=== PATIENT | male | born 1990 | race African-American/Black ===

== ENCOUNTER 2021-08-05 18:05 | Emergency (ER) | payer BC ==
--- OUTSIDE RECORDS SUMMARY | 2021-08-05 18:07 | XMS REPORT | Continuity of Care Document ---
:1990 Author Organization [facility] t Address [address] [place] [address] Care Team Providers Name Role Phone Nic VACA, H Primary Care Physician BELINDA Attending Clinician Unavailable LAB90 Attending Clinician Unavailable Belinda ACCOUNTANT-C Attending Clinician Rohan Chris MD Attending Clinician PARK SPENCE Attending Clinician Unavailable DEVIN SALDIVAR Attending Clinician Unavailable NIKOS Attending Clinician Unavailable Payers Payer Name Policy Type Policy Number Effective Date Expiration Date S [facility] 2 [id number] 2019 00:00:00 Problems Condition Condition Condition Status Onset Resolution Last Treating Co mments Source Name Details Category Date Date Treatment Clinician Date Adult Adult Problem Active [facility] general general HL7.CCDAR2 [facility] of [facility] [place] exam exam Physici ans Need for Need for Problem Active Unive rs HPV HPV HL7.CCDAR2 ity of vacc[place] vacc[place] Physici ans Depression Depression Problem Active U nivers HL7.CCDAR2 ity of [place] Physici ans Anemia, Anemia, Problem Active Univers macrocytic macrocytic HL7.CCDAR2 ity of [place] Physici ans Hematuria Hematuria Problem Active Uni vers HL7.CCDAR2 ity of [place] Physici ans Folliculit Folliculit Problem Active U nivers is is HL7.CCDAR2 ity of [place] Physici ans Calcium Calcium Problem Active Univers oxalate oxalate HL7.CCDAR2 ity of crystals crystals [place] in urine in urine Physic i ans No known No known Disease Kelse y active active Seybold problems problems Allergies, Adverse Reactions, Alerts This patient has no known allergies or adverse reactions. Family History Family Member Diagnosis Comments Start Date Stop Date Source Mother Family history of [facility] ity of [place] multiple sclerosis Physic ians Father Family history of [facility] of [place] hypertension Physicians Social History Social Habit Start Date Stop Date Quantity Comments Source History SDOH Anca vicente Alcohol Comment History of tobacco Cigar Smoker Andria william ybold use Alcohol intake 2021-06-03 2021-06-03 Current drinker Marty Lora 00:00:00 00:00:00 of alcohol (finding) History [facility] 2019-10-30 2019-10-30 2 Anca vicente Alcohol Binge 00:00:00 00:00:00 Tobacco Comment 2019-10-30 2019-10-30 weekends Anca Se ybbette 00:00:00 00:00:00 Tobacco use and 2019-10-30 2019-10-30 Smokeless tobacco Ke ramsey Pastranaybold exposure 00:00:00 00:00:00 non-user History [facility] 2019-10-30 2019-10-30 3 Anca Mayfieldo cinthia Alcohol Frequency 00:00:00 00:00:00 History [facility] 2019-10-30 2019-10-30 2 Anca vicente Alcohol Std Drinks 00:00:00 00:00:00 [birth year] At [birth year] Anca Pastrana ybbette 00:00:00 00:00:00 Smoking Status Start Date Stop Date Source Smoker. [facility] [place] unknown Physicians Light tobacco smoker 2019-10-30 00:00:00 Anca Lora Medications Ordered Filled Start Stop Current Ordering Indication Dosage Frequency Signature Comments Components Source Medication Medication Date Date Medication? Clinician (SIG) Name Name Diclofenac Yes [id number] 75mg Take 1 Anca Sodium 75 09-11 9100 tablet (75 Seyb old MG oral 00:00: mg total) Tablet 00 by mouth 2 Delayed times Response daily For 1 week then take daily as needed Diclofenac 2020- Yes [id number] 75mg Take 1 Anca Sodium 75 09-11 9100 tablet (75 Seyb old MG oral 00:00: mg total) Tablet 00 by mouth 2 Delayed times Response daily For 1 week then take daily as needed methylPREDN Yes Anca ISolone 4 5-31 Seybold MG oral 00:00: Tablet 00 Therapy Pack methylPREDN Marty corley ISolone 4 5-31 - Seybold MG oral 00:00: 00:00 Tablet 00 :00 Therapy Pack Immunizations Ordered Filled Immunization Date Status Comments [facility] Immunization Name Name HPV (Gardasil) 2016-03-12 Completed [facility] 10:10:00 Cher Physicia waqas Vital Signs Vital Name Observation Time Observation Value Comments Source Systolic blood pressure 2021-06-03 17:05:00 124 mm[Hg] Anca Seybold Diastolic blood 2021-06-03 17:05:00 60 mm[Hg] Kelse y Seybold pressure Heart rate 2021-06-03 17:05:00 89 /min Anca S williambold Body temperature 2021-06-03 17:05:00 36.67 Becky Andria ey Seybold Respiratory rate 2021-06-03 17:05:00 16 /min Andria thomas Seybold Body height 2021-06-03 17:05:00 177.8 cm Anca thomasbold Body weight 2021-06-03 17:05:00 87.998 kg Anca S williambold BMI 2021-06-03 17:05:00 27.84 kg/m2 Anca S williambold Systolic blood pressure 2021-01-03 16:27:00 126 mm[Hg] Anca Seybold Diastolic blood 2021-01-03 16:27:00 68 mm[Hg] Kelse y Seybold pressure Heart rate 2021-01-03 16:27:00 74 /min Anca S eybold Body temperature 2021-01-03 16:27:00 36.56 Becky Andria ey Seybold Respiratory rate 2021-01-03 16:27:00 20 /min Andria ey Seybold Body height 2021-01-03 16:27:00 177.8 cm Anca gallego Body weight 2021-01-03 16:27:00 85.004 kg Anca gallego BMI 2021-01-03 16:27:00 26.89 kg/m2 Anca gallego Procedures This patient has no known procedures. Encounters Start End Encounter Admission Attending Care Care Encounter Source Date/Time Date/Time Type Type Clinicians Facility Department ID 2021-06-12 2021-06-12 Outpatient ANCA TREVINO [id number] Anca 00:00:00 00:00:00 NANCY Seybol d 2021-06-10 2021-06-10 Outpatient ANCA TREVINO [id number] Anca 00:00:00 00:00:00 NANCY Seybol d 2021-06-09 2021-06-09 Outpatient ANCA TREVINO [id number] Anca 00:00:00 00:00:00 NANCY Seybol d 2021-06-03 2021-06-03 Outpatient LAB90 ANCA ESQUIVEL [id number] Anca 11:45:00 11:45:00 Seybol d 2021-06-03 2021-06-03 Office Jori Trevino [id number] Anca 11:00:00 11:30:00 Visit Nancy Rose [id number] Se gisell [id number] 2021-01-03 2021-01-03 Outpatient LAB90 ANCA ESQUIVEL [id number] Anca 12:15:00 12:15:00 Seybol d 2021-01-03 2021-01-03 Office Jori Chris [id number] Anca 11:23:34 11:53:34 Visit Madelaine Milton [id number] Se ybold Somogyi [id number] 2020-09-23 2020-09-24 Emergency E SAMUEL SPENCE MHBL [id number] MHBL 21:40:00 04:39:00 REEVA 2020-09-09 2020-09-09 Emergency E SAMUEL SALDIVAR MHBL [id number] MHBL 10:16:00 12:48:00 SANDY 2016-03-19 2016-03-19 KATARINA Shah [facility] [id number] Univers 09:00:00 09:00:00 t; ramona AREVALO M.D. [place] JEFFEEA, Physici M.D. ans 2016-03-12 2016-03-12 KATARINA Shah [facility] [id number] Univers 09:45:00 09:45:00 t; ramona AREVALO M.D. [place] JEFFEEA, Physici M.D. ans Results This patient has no known results.
[2021-08-05 19:02] LABS: Absolute Lymphocytes (CBC) 2.1 K/uL (0.7-4.9); Hematocrit 41.8 % (39.6-49.0); Lymphocytes % 34.2 % (15.3-44.8); MPV 8.1 fL (7.6-11.3); RBC Red Blood Cell Count 4.42 M/uL (4.33-5.43)
[2021-08-05 19:34] LABS: ALT/SGPT 39 U/L (12-78); AST/SGOT 24 U/L (15-37); Albumin 4.3 g/dL (3.4-5.0); Alkaline Phosphatase 51 U/L (45-117); BUN Blood Urea Nitrogen 13 mg/dL (7-18); Bicarbonate 28 mmol/L (21-32); Bilirubin Total 0.3 mg/dL (0.2-1.0); Glucose Level 98 mg/dL (74-106); Lipase 84 U/L (73-393); Potassium 3.9 mmol/L (3.5-5.1); Protein, Total 7.5 g/dL (6.4-8.2); Sodium Level 138 mmol/L (136-145)
[2021-08-05] MEDS ORDERED: AZITHROMYCIN 250 MG TAB ONE (19:54)
[2021-08-05] MEDS ORDERED: LIDOCAINE 1% MPF 2 ML AMPULE ONE (19:54)
[2021-08-05] MEDS ORDERED: CEFTRIAXONE 250 MG/VIAL ONE (19:54)
[2021-08-05 20:03] LABS: Urine Blood Trace-intact (Negative); Urine Glucose Negative (Negative); Urine Protein Negative (Negative); Urine Specific Gravity 1.025 (1.005-1.030)
--- NOTE | 2021-08-05 20:04 | ER ---
Nurse's Notes [facility] Name: Jess Mark Age: 30 yrs Sex: Male : 1990 Arrival Date: 08/05/2021 Time: 18:10 Bed 5 Private MD: Diagnosis: Nonspecific lymphadenitis, unspecified-bilateral inguinal lymphadenititis Presentation: 08/05 18:27 Chief complaint: Patient states: Right side ABD pain x2 days and diarrhea; denies NV. vg1 Coronavirus screen: Vaccine status: Patient reports being unvaccinated. Client denies travel out of the [place] in the last 14 days. Ebola Screen: Patient denies exposure to infectious person. Patient denies travel to an Ebola-affected area in the 21 days before illness onset. Initial Sepsis Screen: Does the patient meet any 2 criteria? No. Patient's initial sepsis screen is negative. Does the patient have a suspected source of infection? No. Patient's initial sepsis screen is negative. Risk Assessment: Do you want to hurt yourself or someone else? Patient reports no desire to harm self or others. Onset of symptoms was August 03, 2021. 18:27 Method Of Arrival: Amb[facility] 18:27 Acuity: [place] 3 vg1 Triage Assessment: 18:29 General: Appears comfortable, Behavior is cooperative. Pain: Complains of pain in right vg1 lower quadrant Pain currently is 0 out of 10 on a pain scale. at worst was 5 out of 10 on a pain scale. GI: Abdomen is flat, Reports diarrhea. Historical: - Allergies: 18:29 No Known Allergies; vg1 - Home Meds: 18:29 None [Active]; vg1 - PMHx: 18:29 None; vg1 - PSHx: 18:29 None; vg1 - Immunization history:: Client reports having NOT received the Covid vaccine. - Social history:: Smoking status: Patient/guardian denies using tobacco. Screenin:00 Abuse screen: Denies injuries from another. Nutritional screening: No deficits noted. jb4 Tuberculosis screening: No symptoms or risk factors identified. Fall Risk None identified. Assessment: 19:47 General: Appears in no apparent distress. Behavior is calm, cooperative, pt ambulating as6 to bathroom . 20:08 Reassessment: Patient appears in no apparent distress at this time. Patient and/or jb4 family updated on plan of care and expected duration. Pain level reassessed. Patient is alert, oriented x 3, equal unlabored respirations, skin warm/dry/pink. Vital Signs: 18:27 BP 154 / 89; Pulse 70; Resp 16; Temp 98.1; Pulse Ox 100% ; Weight 86.18 kg; Height 5 vg1 ft. 11 in. (180.34 cm); Pain 0/10; 20:08 BP 153 / 81; Pulse 65; Resp 18 S; Pulse Ox 98% on R/A; as6 18:27 Body Mass Index 26.50 (86.18 kg, 180.34 cm) vg1 ED Course: 18:10 Patient arrived in ED. ds1 18:29 Triage completed. vg1 18:29 Arm band placed on. vg1 18:33 Donnie Hernandez NP is PHCP. pm1 18:33 Heri Milton MD is Attending Physician. pm1 18:43 Jarret Marcelino, USMAN is Primary Nurse. jb4 19:00 Patient has correct armband on for positive identification. Bed in low position. Call jb4 light in reach. Side rails up X 1. Pulse ox on. NIBP on. 19:00 Initial lab(s) drawn, by ga, sent to lab. Inserted saline lock: 18 gauge in right jb4 antecubital area, using aseptic technique. Blood collected. 20:03 No provider procedures requiring assistance completed. as6 20:08 IV discontinued, intact, bleeding controlled, No redness/swelling at site. Pressure jb4 dressing applied. Administered Medications: 19:57 Drug: Rocephin (cefTRIAXone) 250 mg Route: IM; Site: right ventrogluteal; as6 19:57 Drug: AZITHromycin 1 grams Route: PO; as6 Outcome: 20:02 Discharge ordered by . pm1 20:03 Discharged to home ambulatory. as6 20:03 Condition: stable 20:08 Discharge instructions given to patient, Instructed on discharge instructions, follow jb4 up and referral plans. medication usage, Demonstrated understanding of instructions, follow-up care, medications, Prescriptions given X 1. 20:09 Patient left the ED. jb4 Signatures: Norma Stanton ds1 Donnie Hernandez NP FIBER ANALYST pm1 Jarret Marcelino RN RN jb4 Eula Dominguez RN RN vg1 Slawson, Jeff, RN RN as6
--- NOTE | 2021-08-05 20:04 | EDPHYS ---
Physician Documentation [facility] Name: Jess Mark Age: 30 yrs Sex: Male : 1990 Arrival Date: 08/05/2021 Time: 18:10 Bed 5 Private MD: ED Physician Heri Milton HPI: 08/05 19:53 This 30 yrs old Black Male presents to ER via Ambulatory with complaints of inguinal pm1 pain. 19:53 The patient presents with inguinal lymph node swelling noted for the past 2 days. Right pm1 side more painful than the left side. Patient reports history of abrasions present to lower extremities the past few days. Onset: The symptoms/episode began/occurred 2 day(s) ago. Modifying factors: The symptoms are alleviated by nothing, the symptoms are aggravated by nothing. Patient is able to work without noticing the swollen lymph nodes without pain. Associated signs and symptoms: Pertinent positives: diarrhea, Pertinent negatives: abdominal pain, dysuria, fever, nausea, vomiting. Severity of symptoms: in the emergency department the symptoms have improved, left side no longer causing pain. The patient has experienced a previous episode, many years ago. The patient has not recently seen a physician. 19:53 Patient reports sex with a friend about 2 weeks ago. Not monogynous relationship. pm1 Denies testicular pain, discharge, or burning with urination. . Historical: - Allergies: 18:29 No Known Allergies; vg1 - Home Meds: 18:29 None [Active]; vg1 - PMHx: 18:29 None; vg1 - PSHx: 18:29 None; vg1 - Immunization history:: Client reports having NOT received the Covid vaccine. - Social history:: Smoking status: Patient/guardian denies using tobacco. ROS: 19:53 Constitutional: Negative for fever, chills, and weight loss, Cardiovascular: Negative pm1 for chest pain, palpitations, and edema, Respiratory: Negative for shortness of breath, cough, wheezing, and pleuritic chest pain, Abdomen/GI: Negative for abdominal pain, nausea, vomiting, diarrhea, and constipation, Back: Negative for injury and pain, : Negative for injury, bleeding, discharge, and swelling, MS/Extremity: Negative for injury and deformity, Skin: Negative for injury, rash, and discoloration, Neuro: Negative for headache, weakness, numbness, tingling, and seizure. 19:53 All other systems are negative. Exam: 19:53 Constitutional: This is a well developed, well nourished patient who is awake, alert, pm1 and in no acute distress. Head/Face: Normocephalic, atraumatic. 19:53 Back: No spinal tenderness. No costovertebral tenderness. Full range of motion. Skin: Warm, dry with normal turgor. Normal color with no rashes, no lesions, and no evidence of cellulitis. 19:53 MS/ Extremity: Pulses equal, no cyanosis. Neurovascular intact. Full, normal range of motion. 19:53 Cardiovascular: Exam negative for acute changes, Rate: normal, Rhythm: regular, Pulses: no pulse deficits are appreciated. 19:53 Respiratory: Exam negative for acute changes, respiratory distress, shortness of breath. 19:53 Abdomen/GI: Inspection: abdomen appears normal, Palpation: abdomen is soft and non-tender, in all quadrants. 19:53 : soft movable lymph nodes present to right and left inguinal area. 19:53 Neuro: Exam negative for acute changes, Orientation: is normal, Mentation: is normal, Motor: is normal, moves all fours. Vital Signs: 18:27 BP 154 / 89; Pulse 70; Resp 16; Temp 98.1; Pulse Ox 100% ; Weight 86.18 kg; Height 5 vg1 ft. 11 in. (180.34 cm); Pain 0/10; 20:08 BP 153 / 81; Pulse 65; Resp 18 S; Pulse Ox 98% on R/A; as6 18:27 Body Mass Index 26.50 (86.18 kg, 180.34 cm) vg1 MDM: 18:33 Patient medically screened. pm1 19:59 Data reviewed: vital signs. Data interpreted: Pulse oximetry: on room air is 100 %. pm1 Interpretation: normal. Counseling: I had a detailed discussion with the patient and/or guardian regarding: the historical points, exam findings, and any diagnostic results supporting the discharge/admit diagnosis, lab results, the need for outpatient follow up, PCP and/or STD clinic, to return to the emergency department if symptoms worsen or persist or if there are any questions or concerns that arise at home. 08/05 18:39 Order name: CBC with Diff; Complete Time: 19:28 pm1 08/05 18:39 Order name: CMP; Complete Time: 19:38 pm1 08/05 18:39 Order name: Lipase; Complete Time: 19:38 pm1 08/05 20:04 Order name: Urine Dipstick-Ancillary; Complete Time: 20:20 EDDE 08/05 18:39 Order name: IV Saline Lock; Complete Time: 19:00 pm1 08/05 18:39 Order name: Labs collected and sent; Complete Time: 19:00 pm1 08/05 18:39 Order name: Urine Dipstick-Ancillary (obtain specimen); Complete Time: 20:03 pm1 Administered Medications: 19:57 Drug: Rocephin (cefTRIAXone) 250 mg Route: IM; Site: right ventrogluteal; as6 19:57 Drug: AZITHromycin 1 grams Route: PO; as6 Disposition Summary: 08/05/21 20:02 Discharge Ordered Location: Home pm1 Problem: new pm1 Symptoms: have improved pm1 Condition: Stable pm1 Diagnosis - Nonspecific lymphadenitis, unspecified - bilateral inguinal lymphadenititis pm1 Followup: pm1 - With: Emergency Department - When: As needed - Reason: Worsening of condition Followup: pm1 - With: Private Physician - When: 2 - 3 days - Reason: Recheck today's complaints, Continuance of care, Re-evaluation by your physician Discharge Instructions: - Discharge Summary Sheet pm1 - Lymphadenopathy pm1 Forms: - Medication Reconciliation Form pm1 - Thank You Letter pm1 - Antibiotic Education pm1 - Prescription Opioid Use pm1 Prescriptions: - Cephalexin 500 mg Oral Capsule - take 1 capsule by ORAL route every 6 hours for 10 days; 40 capsule; Refills: 0, pm1 Product Selection Permitted Signatures: Dispatcher [employer] [facility] Donnie Hernandez NP CELERY WRAPPER pm1 Eula Dominguez, RN RN vg1 Jeff Lim, USMAN RN as6
[2021-08-05 22:52] VITALS: TEMP 98.1
[2021-08-05 22:53] VITALS: BP 153/81; O2SAT 98
== END 2021-08-05 20:09 | disposition home or self-care (01) ==
LOC: ER 18:05
DX: I88.8 Other nonspecific lymphadenitis (principal)
CPT/HCPCS: 85025; 36415; 81003; 83690; 80053; J0696; 96372; 99284

== ENCOUNTER 2022-01-10 18:29 | Emergency (ER) | payer BC, SELFPAY ==
--- OUTSIDE RECORDS SUMMARY | 2022-01-10 18:33 | XMS REPORT | Continuity of Care Document ---
:1990 Author Organization [facility] t Address [address] [place] [address] Care Team Providers Name Role Phone Nic VACA, Marcial Primary Care Physician Ke Rubio DO Attending Clinician NANCY TREVINO Attending Clinician Unavailable LAB90 Attending Clinician Unavailable Nancy Kilgore Attending Clinician Madelaine Chris MD Attending Clinician [phone] JG SPENCE Attending Clinician Unavailable SANDY SALDIVAR Attending Clinician Unavailable MICKEY KNOTT M.D. Attending Clinician Unavailable Payers Payer Name Policy Type Policy Number Effective Date Expiration Date S ource Problems Condition Condition Condition Status Onset Resolution Last Treating Co mments Source Name Details Category Date Date Treatment Clinician Date Dermatitis Dermatitis Disease Active K elsey 5-05 Seybold 00:00: 00 History of History of Disease Active K elsey chlamydia chlamydia - Seyb old infection infection 00:00: 00 Inguinal Inguinal Disease Active Kelse y lymphadeno lymphadeno 5-05 Se ybold janiya janiya 00:00: 00 Adult Adult Problem Active [facility] general general HL7.CCDAR2 Phys ici medical medical ans exam exam Need for Need for Problem Active [facility] HPV HPV HL7.CCDAR2 Physic i vaccinatio vaccinatio an s n n Depression Depression Problem Active U T HL7.CCDAR2 Physic i ans Anemia, Anemia, Problem Active [facility] macrocytic macrocytic HL7.CCDAR2 Physici ans Hematuria Hematuria Problem Active [facility] HL7.CCDAR2 Physic i ans Folliculit Folliculit Problem Active U T is is HL7.CCDAR2 Physic i ans Calcium Calcium Problem Active [facility] oxalate oxalate HL7.CCDAR2 Phys ici crystals crystals ans in urine in urine No known No known Disease Kelse y active active Seybold problems problems Allergies, Adverse Reactions, Alerts This patient has no known allergies or adverse reactions. Family History Family Member Diagnosis Comments Start Date Stop Date Source Mother Family history of multiple [facility] Physicians sclerosis Father Family history of [facility] Phys icians hypertension Social History Social Habit Start Date Stop Date Quantity Comments Source History SDOH Anca vicente Alcohol Comment History of tobacco Cigar Smoker Andria thomas Seybold use Alcohol intake 2021-08-14 2021-08-14 Current drinker Marty Lora 00:00:00 00:00:00 of alcohol (finding) History SDWV 2019-10-30 2019-10-30 2 Anca vicente Alcohol Binge 00:00:00 00:00:00 Tobacco Comment 2019-10-30 2019-10-30 weekends Anca jameson 00:00:00 00:00:00 Tobacco use and 2019-10-30 2019-10-30 Smokeless tobacco Ke howilliam Seybold exposure 00:00:00 00:00:00 non-user History SDWV 2019-10-30 2019-10-30 3 Anca vicente Alcohol Frequency 00:00:00 00:00:00 History SDWV 2019-10-30 2019-10-30 2 Anca vicente Alcohol Std Drinks 00:00:00 00:00:00 Sex [birth year] At [birth year] Anca Se ybold 00:00:00 00:00:00 Smoking Status Start Date Stop Date Source Smoker. current status unknown [facility] Physicians Light tobacco smoker 2019-10-30 00:00:00 Anca Seybold Medications Ordered Filled Start Stop Current Ordering Indication Dosage Frequency Signature Comments Components Source Medication Medication Date Date Medication? Clinician (SIG) Name Name Fahadrocin Yes [id number] Apply 1 Anca (BACTROBAN) 08-14 applicatio Se ybold 2 % apply 00:00: n externally 00 topically Ointment 2 times daily Doxycycline 2021- No [id number] 100mg Take 1 Anca Hyclate 100 08-14-13 capsule Seyb old MG oral 00:00: 04:59 (100 mg Capsule 00 :00 total) by mouth in the morning and 1 capsule (100 mg total) in the evening. Do all this for 7 days. Cephalexin 2021- No TAKE ONE Ke lsey 500 MG oral 08-0505 CAPSULE BY S eybold Capsule 00:00: 00:00 MOUTH 00 :00 EVERY 6 HOURS FOR 10 DAYS Diclofenac Yes [id number] 75mg Take 1 Anca Sodium 75 6- 9100 tablet (75 Seyb old MG oral 00:00: mg total) Tablet 00 by mouth 2 Delayed times Response daily For 1 week then take daily as needed Diclofenac Yes [id number] 75mg Take 1 Anca Sodium 75 6-02 9100 tablet (75 Seyb old MG oral 00:00: mg total) Tablet 00 by mouth 2 Delayed times Response daily For 1 week then take daily as needed Diclofenac 2021- No [id number] 75mg Take 1 Anca Sodium 75 6-05 17- 9100 tablet (75 Sey bold MG oral 00:00: 00:00 mg total) Tablet 00 :00 by mouth 2 Delayed times Response daily For 1 week then take daily as needed methylPREDN Yes Anca ISolone 4 5-31 Seybold MG oral 00:00: Tablet 00 Therapy Pack methylPREDN 2021- No Marty y ISolone 4 5-31 02-22 Seybold MG oral 00:00: 00:00 Tablet 00 :00 Therapy Pack Immunizations Ordered Immunization Filled Immunization Date Status Commen ts Source Name Name HPV (Gardasil) 2016-03-12 Completed [facility] Physici ans 10:10:00 Vital Signs Vital Name Observation Time Observation Value Comments Source Systolic blood pressure 2021-08-14 20:51:00 110 mm[Hg] Anca Seybold Diastolic blood 2021-08-14 20:51:00 52 mm[Hg] Kelse y Seybold pressure Heart rate 2021-08-14 20:51:00 67 /min Anca S eybold Body temperature 2021-08-14 20:51:00 36.28 Becky Andria ey Seybold Respiratory rate 2021-08-14 20:51:00 14 /min Andria ey Seybold Body height 2021-08-14 20:51:00 177.8 cm Anca S eybold Body weight 2021-08-14 20:51:00 89.359 kg Anca S eybold BMI 2021-08-14 20:51:00 28.27 kg/m2 Anca S eybold Systolic blood pressure 2021-06-03 17:05:00 124 mm[Hg] Anca Seybold Diastolic blood 2021-06-03 17:05:00 60 mm[Hg] Kelse y Seybold pressure Heart rate 2021-06-03 17:05:00 89 /min Anca S eybold Body temperature 2021-06-03 17:05:00 36.67 Becky Andria ey Seybold Respiratory rate 2021-06-03 17:05:00 16 /min Andria ey Seybold Body height 2021-06-03 17:05:00 177.8 cm Anca Buck eybold Body weight 2021-06-03 17:05:00 87.998 kg Anca Buck eybold BMI 2021-06-03 17:05:00 27.84 kg/m2 Anca S eybold Systolic blood pressure 2021-01-03 16:27:00 126 mm[Hg] [...] Date/Time Type Type Clinicians Facility Department ID 2021-08-14 2021-08-14 Office Jori Rubio [id number] Anca 16:00:00 16:15:00 Visit Ke Milton [id number] Se ybold [id number] 2021-06-12 2021-06-12 Outpatient ANCA TREVINO [id number] Anca 00:00:00 00:00:00 NANCY Seybol d 2021-06-10 2021-06-10 Outpatient ANCA TREVINO [id number] Anca 00:00:00 00:00:00 NANCY Seybol d 2021-06-09 2021-06-09 Outpatient ANCA TREVINO [id number] Anca 00:00:00 00:00:00 NANCY Seybol d 2021-06-03 2021-06-03 Outpatient LAB90 ANCA ESQUIVEL [id number] Anca 11:45:00 11:45:00 Seybol d 2021-06-03 2021-06-03 Office Jori Trevino [id number] Anca 11:00:00 11:30:00 Visit Nancy Rose [id number] Se ybold [id number] 2021-01-03 2021-01-03 Outpatient LAB90 ANCA ESQUIVEL [id number] Anca 12:15:00 12:15:00 Seybol d 2021-01-03 2021-01-03 Office Jori Chris [id number] Anca 11:23:34 11:53:34 Visit Maedlaine Rose [id number] Se ybold Somogyi [id number] 2020-09-23 2020-09-24 Emergency E BEBE, BL MHBL [id number] MHBL 21:40:00 04:39:00 REEVA 2020-09-09 2020-09-09 Emergency E YARIEL, MHBL MHBL [id number] MHBL 10:16:00 12:48:00 CAMMYIWELINOR 2019-10-14 2019-10-14 Outpatient FBCOVID FBCOVID [id number] FBCOVID 00:00:00 00:00:00 [id number] 2016-03-19 Vipin [facility] UTP [id number] [place] 09:00:00 09:00:00 t; Leighton AREVALO M.D. ans JEFFEEA, M.D. 2016-03-12 2016-03-12 Vipin [facility] UTP [id number] [place] 09:45:00 09:45:00 t; Leighton AREVALO M.D. ans JEFFEEA, M.D. Results This patient has no known results.
[2022-01-10] MEDS ORDERED: AZITHROMYCIN 250 MG TAB ONE (19:13)
[2022-01-10] MEDS ORDERED: CEFTRIAXONE 250 MG/VIAL ONE (19:13)
--- NOTE | 2022-01-10 19:44 | ER ---
Nurse's Notes [facility] Name: Jess Mark Age: 31 yrs Sex: Male : 1990 Arrival Date: 01/10/2022 Time: 18:31 Bed Treatment Private MD: Diagnosis: Dysuria Presentation: 01/10 18:45 Chief complaint: Patient states: I have been having a hard time peeing lately and my bm7 girlfriend has been having the same symptoms as well. She went to the doctor today and they told her she has a STD. They gave her a shot and pills and said I needed to get checked out too. Coronavirus screen: At this time, the client does not indicate any symptoms associated with coronavirus-19. Ebola Screen: No symptoms or risks identified at this time. Initial Sepsis Screen: Does the patient meet any 2 criteria? No. Patient's initial sepsis screen is negative. Does the patient have a suspected source of infection? No. Patient's initial sepsis screen is negative. Risk Assessment: Do you want to hurt yourself or someone else? Patient reports no desire to harm self or others. Onset of symptoms was January 10, 2022. 18:45 Method Of Arrival: Ambulatory [facility] 18:45 Acuity: [place] 3 bm7 Triage Assessment: 18:46 General: Appears in no apparent distress. uncomfortable, Behavior is calm, cooperative, bm7 appropriate for age. Pain: Complains of pain in low back area and left low back. EENT: No deficits noted. No signs and/or symptoms were reported regarding the EENT system. Neuro: No deficits noted. Cardiovascular: No deficits noted. Respiratory: No deficits noted. GI: No deficits noted. No signs and/or symptoms were reported involving the gastrointestinal system. : No deficits noted. No signs and/or symptoms were reported regarding the genitourinary system. Derm: No deficits noted. No signs and/or symptoms reported regarding the dermatologic system. Musculoskeletal: Reports pain in low back area. Historical: - Allergies: 18:46 No Known Allergies; bm7 - Home Meds: 18:46 None [Active]; bm7 - PMHx: 18:46 None; bm7 - PSHx: 18:46 None; bm7 - Immunization history:: Adult Immunizations up to date, Client reports having NOT received the Covid vaccine. - Social history:: Smoking status: Patient denies any tobacco usage or history of. Screenin:52 Abuse screen: Denies threats or abuse. Denies injuries from another. Nutritional ld1 screening: No deficits noted. Tuberculosis screening: No symptoms or risk factors identified. Fall Risk None identified. Assessment: 19:52 Reassessment: See triage assessment. ld1 Vital Signs: 18:44 BP 143 / 70; Pulse 64; Resp 16; Temp 97.6(TE); Pulse Ox 100% on R/A; Weight 83.91 kg 7 (R); Height 5 ft. 11 in. (180.34 cm); Pain 5/10; 18:44 Body Mass Index 25.80 (83.91 kg, 180.34 cm) 7 ED Course: 18:31 Patient arrived in ED. as 18:42 Manjit Snyder PA is PHCP. [facility] 18:42 Norma Canales MD is Attending Physician. [facility] 18:44 Arm band placed on right wrist. [facility] 18:46 Triage completed. [facility] 19:07 Skye Brown RN is Primary Nurse. 3 19:52 Patient has correct armband on for positive identification. Call light in reach. Pulse ld1 ox on. NIBP on. Door closed. Noise minimized. 19:52 No provider procedures requiring assistance completed. Patient did not have IV access ld1 during this emergency room visit. Administered Medications: 19:23 Drug: AZITHromycin 1 grams Route: PO; 3 19:46 Follow up: Response: No adverse reaction ld1 19:30 Drug: Rocephin (cefTRIAXone) 250 mg Route: IM; Site: right vastus lateralis; ld1 19:46 Follow up: Response: No adverse reaction ld1 Medication: 19:52 VIS not applicable for this client. ld1 Outcome: 19:43 Discharge ordered by . [facility] 19:52 Discharged to home ambulatory. ld1 19:52 Condition: stable 19:52 Discharge instructions given to patient, Instructed on discharge instructions, follow up and referral plans. medication usage, Demonstrated understanding of instructions, follow-up care, medications, Prescriptions given X 1. 19:53 Patient left the ED. ld1 Signatures: Manjit Snyder PA PA jmm Martinez, Amelia as McCarthy, Brittany, RN RN bm7 Gloria Mac, RN RN ld1 Skye Brown, RN RN eh3
--- NOTE | 2022-01-10 19:44 | EDPHYS ---
Physician Documentation [facility] Name: Jess Mark Age: 31 yrs Sex: Male : 1990 Arrival Date: 01/10/2022 Time: 18:31 Bed Treatment Private MD: ED Physician Norma Canales HPI: 01/10 19:40 This 31 yrs old Black Male presents to ER via Ambulatory with complaints of Pelvic jmm Pain, Pain With Urination. 19:40 The patient presents with. This is a 31 year old male with no chronic medical jmm conditions that presents to the ED with complaints of increased urinary frequency. Partner recently tested positive for trichomonas. Denies penile discharge, fever, abdominal pain. . Historical: - Allergies: 18:46 No Known Allergies; bm7 - Home Meds: 18:46 None [Active]; bm7 - PMHx: 18:46 None; bm7 - PSHx: 18:46 None; bm7 - Immunization history:: Adult Immunizations up to date, Client reports having NOT received the Covid vaccine. - Social history:: Smoking status: Patient denies any tobacco usage or history of. ROS: 19:40 Constitutional: Negative for fever, chills, and weight loss, Cardiovascular: Negative jmm for chest pain, palpitations, and edema, Respiratory: Negative for shortness of breath, cough, wheezing, and pleuritic chest pain. 19:40 : Positive for urinary symptoms. 19:40 All other systems are negative. Exam: 19:40 Constitutional: This is a well developed, well nourished patient who is awake, alert, jmm and in no acute distress. Head/Face: atraumatic. Eyes: EOMI, no conjunctival erythema appreciated ENT: Moist Mucus Membranes Neck: Trachea midline, Supple Chest/axilla: Normal chest wall appearance and motion. Cardiovascular: Regular rate and rhythm. No edema appreciated Respiratory: Normal respirations, no respiratory distress appreciated Abdomen/GI: Non distended Back: Normal ROM Skin: General appearance color normal MS/ Extremity: Moves all extremities, no obvious deformities appreciated, no edema noted to the lower extremities Neuro: Awake and alert Psych: Behavior is normal, Mood is normal, Patient is cooperative and pleasant Vital Signs: 18:44 BP 143 / 70; Pulse 64; Resp 16; Temp 97.6(TE); Pulse Ox 100% on R/A; Weight 83.91 kg bm7 (R); Height 5 ft. 11 in. (180.34 cm); Pain 5/10; 18:44 Body Mass Index 25.80 (83.91 kg, 180.34 cm) bm7 MDM: 19:01 Patient medically screened. [facility] 19:41 Data reviewed: vital signs, nurses notes. Counseling: I had a detailed discussion with [facility] the patient and/or guardian regarding: the historical points, exam findings, and any diagnostic results supporting the discharge/admit diagnosis, the need for outpatient follow up, to return to the emergency department if symptoms worsen or persist or if there are any questions or concerns that arise at home. Administered Medications: 19:23 Drug: AZITHromycin 1 grams Route: PO; eh3 19:46 Follow up: Response: No adverse reaction ld1 19:30 Drug: Rocephin (cefTRIAXone) 250 mg Route: IM; Site: right vastus lateralis; ld1 19:46 Follow up: Response: No adverse reaction ld1 Disposition Summary: 01/10/22 19:43 Discharge Ordered Location: Home [facility] Condition: Stable [facility] Diagnosis - Dysuria [facility] Followup: [facility] - With: Private Physician - When: 2 - 3 days - Reason: Recheck today's complaints, Continuance of care, Re-evaluation by your physician Discharge Instructions: - Discharge Summary Sheet [facility] - Dysuria [facility] Forms: - Medication Reconciliation Form [facility] - Thank You Letter [facility] - Antibiotic Education [facility] - Prescription Opioid Use [facility] Prescriptions: - Flagyl 500 mg Oral Tablet - take 1 tablet by ORAL route every 12 hours for 7 days; 14 tablet; Refills: 0, [facility] Product Selection Permitted Signatures: Manjit Snyder PA PA [facility] Kim Parker RN RN bm7 Gloria Mac RN RN ld1 Skye Brown RN RN eh3
[2022-01-10 20:38] VITALS: BP 143/70; TEMP 97.6; O2SAT 100
== END 2022-01-10 19:53 | disposition home or self-care (01) ==
LOC: ER 18:29
DX: R30.0 Dysuria (principal)
CPT/HCPCS: 96372; 99283; J0696